=== PATIENT | female | born 1985 | race African-American/Black ===

== ENCOUNTER 2022-01-18 07:17 | Emergency (ER) | payer SELFPAY ==
[~2022-01-18] VITALS: Ht 165.1 cm; Wt 71.9 kg
[2022-01-18 08:15] LABS: Basophils # (auto) 0 10 ^3/uL (0-0.2); Basophils % (auto) 0.5 % (0.0-2.0); Eosinophils # (auto) 0 10 ^3/uL (0-0.8); Eosinophils % (auto) 0.4 % (0.0-7.0); Hematocrit 41.3 % (36.0-46.0); Lymphocytes # (auto) 0.9 10 ^3/uL (0.4-5.4); Lymphocytes % (auto) 13.5 % (10.0-50.0); Mean Corpuscular Hemoglobin 28.6 pg (28.0-32.0); Monocytes # (auto) 0.3 10 ^3/uL (0-1.3); Monocytes % (auto) 3.8 % (0.0-12.0); Neutrophils # (auto) 5.3 10 ^3/uL (1.6-8.6); Neutrophils % (auto) 81.8 % (37.0-80.0); Red Blood Cells 4.91 10^6/uL (4.0-5.20); Red Cell Distribution Width 12.9 % (11.8-14.3); White Blood Cell 6.5 10^3/uL (4.4-10.8)
[2022-01-18 08:39] LABS: Calcium 8.9 mg/dL (8.5-10.1); Potassium 3.8 mmol/L (3.5-5.1)
[2022-01-18 08:42] LABS: BUN/Creatinine Ratio 16.3; Bilirubin, Total 0.7 mg/dL (0.2-1.0); Total Protein 7.5 g/dL (6.4-8.2)
[2022-01-18] MEDS ORDERED: MECL1TAB42 PO (09:38)
[2022-01-18 09:51] LABS: Urine Specific Gravity 1.006 (1.001-1.035)
[2022-01-18 09:52] LABS: Urine Bacteria FEW /hpf (None Seen); Urine Blood 3+ /uL (Negative); Urine WBC 11 /hpf (0 - 5)
[2022-01-18] MEDS ORDERED: NITR-87 PO (10:11)
[2022-01-18 10:18] VITALS: BP 123/78
== END 2022-01-18 10:22 | disposition home or self-care (01) ==
LOC: ER 07:17
DX: R42 Dizziness and giddiness (principal); F41.9 Anxiety disorder, unspecified; N39.0 Urinary tract infection, site not specified
CPT/HCPCS: 36415; 80053; 81001; 81025; 85025; 93005